=== PATIENT | female | born 1985 | race Caucasian/White ===

== ENCOUNTER 2022-11-21 21:40 | Emergency (ER) | payer MEDICAID, SELFPAY ==
[2022-11-21 21:46] VITALS: BP 127/81; PULSE 84; RESP 18; TEMP 36.9; O2SAT 99; BMI 23.6
--- NOTE | 2022-11-21 21:53 | PC.NURSE ---
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 toe is now swollen and bruised. 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 ice pack applied on arrival
--- NOTE | 2022-11-21 22:10 | XR_ITS ---
[address] [address] Patient Name: CONRAD BRANNON MRN: [id number] date: 1985 Sex: F Assigned Patient Location: ER Current Patient Location: ER Accession/Order Number: [id number] Exam Date: 11/21/2022 22:10 Report Date: 11/21/2022 22:37 At the request of: SINDI MARKER Procedure: XR toe RT min 2V EXAM: XR toe RT min 2V HISTORY: toe pain COMPARISON: None. TECHNIQUE: 3 views of the right great toe are performed. FINDINGS: There is no acute fracture. The bony structures are intact. Joint spaces are maintained. Unremarkable soft tissues. IMPRESSION: No acute bony abnormality. Electronically authenticated by: ASTRID GRAHAM Date: 11/21/2022 22:37
--- NOTE | 2022-11-21 22:32 | ED.LOWEXI1 ---
HPI - Extremity Injury (Lower) General Chief Complaint: Extremity Injury, Lower Stated Complaint: LOWER INJURY Time Seen by Provider: 11/21/22 22:31 Source: patient Mode of arrival: Wheelchair Limitations: no limitations History of Present Illness HPI Narrative: This 37-year-old female presents for evaluation of right toe pain. The patient states she was taking a coffee cup out of her cupboard in her house and dropped it onto her right foot. It struck her right great toe. She had immediate pain. She has some bruising at the proximal phalanx of the great toe. No additional injuries or complaints. Related Data Home Medications Medication Instructions Recorded Confirmed sertraline 100 mg tablet 100 mg PO DAILY 11/21/22 11/21/22 Allergies Allergy/AdvReac Type Severity Reaction Status Date / Time codeine Allergy Severe Anaphylaxis Verified 11/21/22 21:50 PFSH PFSH Social History Smoking status: Current every day smoker Exam Constitutional Vital Signs - 24 hr 11/21/22 21:46 Temperature 98.5 F Pulse Rate [Monitor] 84 Respiratory Rate 18 Blood Pressure [Right Arm] 127/81 H Pulse Oximetry 99 Oxygen Delivery Method Room Air Documenting provider has reviewed patient's vital signs: yes Common normals: no apparent distress and average body habitus Respiratory Common normals: normal respiratory effort, no retractions, no use of accessory muscles and clear to auscultation bilaterally Cardio Common normals: regular rate and regular rhythm Extremity Right lower extremity: foot and digits ( bruising and tenderness to the proximal phalanx of the right great toe) Right foot and digits: inspection (small area of bruising at 1st metatarsal, no subungual hematoma), palpation (Tender at 1st metatarsal), ROM (Normal), neurovascular exam (Normal) and tendon exam (normal) Course Vital Signs Vital signs: Vital Signs Temperature 98.5 F 11/21/22 21:46 Pulse Rate 84 11/21/22 21:46 Respiratory Rate 18 11/21/22 21:46 Blood Pressure 127/81 H 11/21/22 21:46 Pulse Oximetry 99 11/21/22 21:46 Oxygen Delivery Method Room Air 11/21/22 21:46 Temperature 98.5 F 11/21/22 21:46 Pulse Rate 84 11/21/22 21:46 Respiratory Rate 18 11/21/22 21:46 Blood Pressure 127/81 H 11/21/22 21:46 Pulse Oximetry 99 11/21/22 21:46 Oxygen Delivery Method Room Air 11/21/22 21:46 MDM - Extremity Injury (Lower) MDM Narrative Medical decision making narrative: This 37-year-old female presents for evaluation of right great toe pain after dropping a stainless steel cup under a great great toe. She does not have a subungual hematoma but does have some bruising at the proximal phalanx. X-ray is negative for acute fracture. She is medicated emergency department with a Forsan and Zoan. Toe was chhaya taped to the 2nd and 3rd toe of the same foot and she was discharged home with prescription for ibuprofen. Discharge Plan Discharge Chief Complaint: Extremity Injury, Lower Clinical Impression: Contusion of toe Patient Disposition: Home, Self-Care Time of Disposition Decision: 22:46 Condition: Good Prescriptions / Home Meds: No Action sertraline 100 mg tablet 100 mg PO DAILY Stand Alone Forms: Portal Instructions Referrals: Physician,Non-Staff, MD [Primary Care Provider] - 1 week
[2022-11-21 23:10] VITALS: BP 130/66; PULSE 82; O2SAT 100
[2022-11-21] MEDS: ONDANSETRON 4 MG RAPDIS TABLET SL (23:12)
[2022-11-21] MEDS: HYDROCODONE/ACETAMINOPHEN 5-325 MG TABLET 1 TAB PO (23:12)
== END 2022-11-21 23:25 | disposition home or self-care (01) ==
PROVIDERS: Emergency Provider Emergency Medicine
DX: S90.111A Contusion of right great toe without damage to nail, initial encounter (principal); W20.8XXA Other cause of strike by thrown, projected or falling object, initial encounter; Z79.899 Other long term (current) drug therapy; F17.210 Nicotine dependence, cigarettes, uncomplicated
CPT/HCPCS: 73660; 99283

== ENCOUNTER 2022-12-13 11:40 | Emergency (ER) | payer MEDICAID, SELFPAY ==
[2022-12-13 11:56] VITALS: BP 104/73; PULSE 62; RESP 18; TEMP 37; O2SAT 99; BMI 21.9
--- NOTE | 2022-12-13 12:06 | PC.NURSE ---
Pt states she always has back pain. States the last 2 days the pain has been much worse. States unsure why. Has not been able to work much the last 2 days due to this. 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 Pt wears back brace but states this is not helping much.
--- NOTE | 2022-12-13 12:36 | ED.BACK1 ---
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 ,but the pain started a few days after the work No radiation down her legs no numbness tingling or any other complaints Related Data Home Medications Medication Instructions Recorded Confirmed sertraline 100 mg tablet 100 mg PO DAILY 11/21/22 11/21/22 Previous Rx's Medication Instructions Recorded diclofenac sodium 75 mg 75 mg PO BID PRN pain #10 tabs 12/13/22 tablet,delayed release orphenadrine citrate 100 mg 100 mg PO DAILY PRN muscle spasm 12/13/22 tablet,extended release #10 tabs Allergies Allergy/AdvReac Type Severity Reaction Status Date / Time codeine Allergy Severe Anaphylaxis Verified 11/21/22 21:50 Review of Systems ROS Status of ROS 10 or more systems reviewed and unremarkable except as noted in history and below PFSH PFS Social History Smoking status: Current every day smoker Exam Narrative Exam Narrative: Nurses notes and vital signs reviewed and patient is not hypoxic. General: Well-appearing and in no apparent distress. Skin: Warm, dry, no pallor noted. No rash. Head: Normocephalic, atraumatic. Neck: Supple, non-tender. Eye: Pupils are equal, round and EOMI. No scleral icterus. Ears, Nose, Mouth, and Throat: TM are clear, no nasal mucosal hypertrophy. Oral mucosa is moist, no posterior oropharynx erythema, uvula is mid-line Cardiovascular: Regular Rate and Rhythm without murmur, gallop or rub. Respiratory: No accessory muscle use or respiratory distress. Lungs are clear to auscultation, no wheezing, rales or rhonchi Chest Wall: no tenderness Back: No midline thoracic or lumbar vertebral tenderness. No CVA tenderness Musculoskeletal: normal ROM, no calf or popliteal tenderness, no lower extremity edema/swelling GI: Abdomen is soft, non-distended. Normal bowel sounds. No masses appreciated. No tenderness to palpation. No rebound, guarding, or rigidity noted. Neurological: A&O x4. No cranial nerve dysfunction observed. No truncal ataxia. Moves all extremities. Sensation intact. Psychiatric: Cooperative and interactive. Normal mood and affect. back exam : No intervertebral line tenderness and there is lower paraspinal muscle tenderness of the lumbar level Constitutional Vital Signs, click to edit/add: Last Vital Signs Temp 98.6 F 12/13/22 11:56 Pulse 62 12/13/22 11:56 Resp 18 12/13/22 11:56 BP 104/73 12/13/22 11:56 Pulse Ox 99 12/13/22 11:56 O2 Del Method Room Air 12/13/22 11:56 Course Vital Signs Vital signs: Vital Signs Temperature 98.6 F 12/13/22 11:56 Pulse Rate 62 12/13/22 11:56 Respiratory Rate 18 12/13/22 11:56 Blood Pressure 104/73 12/13/22 11:56 Pulse Oximetry 99 12/13/22 11:56 Oxygen Delivery Method Room Air 12/13/22 11:56 Temperature 98.6 F 12/13/22 11:56 Pulse Rate 62 12/13/22 11:56 Respiratory Rate 18 12/13/22 11:56 Blood Pressure 104/73 12/13/22 11:56 Pulse Oximetry 99 12/13/22 11:56 Oxygen Delivery Method Room Air 12/13/22 11:56 MDM - Back Pain/Injury MDM Narrative Medical decision making narrative: Is admitted with back pain with no alarming symptoms right now she'll be treated with the Voltaren as well as the Norflex The patient is to followup with primary care physician in next 2-3 days or to return to the emergency department should any of the signs or symptoms worsen or new symptoms develop. The patient agrees with the following Diagnosis and Treatment plan and the patient will be discharged home. Discharge Plan Discharge Chief Complaint: Back Pain/Injury Clinical Impression: Strain of lumbar region Patient Disposition: Home, Self-Care Time of Disposition Decision: 12:37 Condition: Good Mode of Transportation: Private Vehicle Prescriptions / Home Meds: New diclofenac sodium 75 mg tablet,delayed release (DR/EC) 75 mg PO BID PRN (Reason: pain) Qty: 10 0RF orphenadrine citrate 100 mg tablet extended release 100 mg PO DAILY PRN (Reason: muscle spasm) Qty: 10 0RF No Action sertraline 100 mg tablet 100 mg PO DAILY Instructions: Acute Low Back Pain (ED) Stand Alone Forms: Portal Instructions Referrals: Physician,Non-Staff, MD [Primary Care Provider] - 1 week (please add ortho follow up ) Discharge Date/Time: 12/13/22 12:59
[2022-12-13] MEDS: KETOROLAC TROMETHAMINE 30 MG/ML VIAL IM (12:52)
[2022-12-13] MEDS: ORPHENADRINE 60 MG/ 2 ML VIAL IM (12:52)
== END 2022-12-13 12:59 | disposition home or self-care (01) ==
PROVIDERS: Emergency Provider Emergency Medicine
DX: S39.012A Strain of muscle, fascia and tendon of lower back, initial encounter (principal); X50.9XXA Other and unspecified overexertion or strenuous movements or postures, initial encounter
CPT/HCPCS: 96372; 99284

== ENCOUNTER 2023-03-04 22:04 | Emergency (ER) | payer MEDICAID, SELFPAY ==
[2023-03-04 22:19] VITALS: BP 120/88; PULSE 97; RESP 18; TEMP 36.3; O2SAT 98; BMI 20.4
--- NOTE | 2023-03-05 00:25 | PC.NURSE ---
Pt wants to know why other pt was taken back before her. Explained to pt that pt are brought back based on Acuity which is what their problem is. pt looks at staff and states that she has a rash. pt again told that it was based on acuity of what is wrong.
--- NOTE | 2023-03-05 01:12 | PC.NURSE ---
went to waiting room to get pt and she was not there or outside.
== END 2023-03-05 01:36 | disposition left against medical advice (07) ==
LOC: ER 22:15
PROVIDERS: Emergency Provider Internal Medicine
DX: Z53.21 Procedure and treatment not carried out due to patient leaving prior to being seen by health care provider (principal)
CPT/HCPCS: 99281

== ENCOUNTER 2023-07-24 09:26 | Emergency (ER) | payer MEDICAID, SELFPAY ==
[2023-07-24 09:35] VITALS: BP 115/92; PULSE 85; RESP 18; TEMP 36.7; O2SAT 100; BMI 20.4
--- NOTE | 2023-07-24 09:46 | ED_ITS ---
HPI - Back Pain/Injury General Chief Complaint: Back Pain/Injury Stated Complaint: BACK PAIN Time Seen by Provider: 07/24/23 09:34 Source: patient Mode of arrival: walk-in Limitations: no limitations History of Present Illness HPI Narrative: 38-year-old female presents for lower back pain. About a week ago she was walking and felt a pulling in her midline lower back. She did not fall and it does not radiate. She has a long history of back problems. She is to be in pain management but is not any longer. She states that her pain doctor is in residential. No dysuria or hematuria. It is worse in certain positions and the pain is moderate. Related Data Previous Rx's Medication Instructions Recorded cyclobenzaprine 10 mg tablet 10 mg PO TID PRN muscle spasm #20 07/24/23 tabs ibuprofen 800 mg tablet 800 mg PO Q8H PRN pain #20 tabs 07/24/23 tramadol 50 mg tablet 50 mg PO Q8H PRN pain #20 tabs 07/24/23 Allergies Allergy/AdvReac Type Severity Reaction Status Date / Time codeine Allergy Severe Anaphylaxis Verified 11/21/22 21:50 Review of Systems ROS Narrative A ten point review of systems is negative except as noted above. PFSH PFSH Social History Smoking status: Current every day smoker Exam Narrative Exam Narrative: Nurses note and vital signs reviewed and patient is not hypoxic. General: The patient appears well and in no apparent distress. Patient is re sting comfortably on cart. Skin: Warm, dry, no pallor noted. There is no rash noted. Head: Normocephalic, atraumatic Eye: Normal conjunctiva, no drainage Ears, Nose, Mouth, and Throat: oral mucosa is moist. Nares patent. Cardiovascular: Regular Rate and Rhythm Respiratory: Patient is in no distress, no accessory muscle use, lungs are clear to auscultation, no wheezing, rales or rhonchi Back: No bruise or rash or focal area of tenderness to palpation. GI: Soft and nontender Musculoskeletal: The patient has no evidence of calf tenderness, no pitting edema, symmetrical pulses noted bilaterally Neurological: A&O, normal speech Psychiatric: Cooperative Constitutional Vital Signs, click to edit/add: Last Vital Signs Temp 98.0 F 07/24/23 09:35 Pulse 85 07/24/23 09:35 Resp 18 07/24/23 09:35 BP 115/92 H 07/24/23 09:35 Pulse Ox 100 07/24/23 09:35 Course Vital Signs Vital signs: Vital Signs Temperature 98.0 F 07/24/23 09:35 Pulse Rate 85 07/24/23 09:35 Respiratory Rate 18 07/24/23 09:35 Blood Pressure 115/92 H 07/24/23 09:35 Pulse Oximetry 100 07/24/23 09:35 Temperature 98.0 F 07/24/23 09:35 Pulse Rate 85 07/24/23 09:35 Respiratory Rate 18 07/24/23 09:35 Blood Pressure 115/92 H 07/24/23 09:35 Pulse Oximetry 100 07/24/23 09:35 MDM - Back Pain/Injury MDM Narrative Medical decision making narrative: The patient was given IM Toradol and Norflex and feels much better and is able to be discharged home. Treatment diagnosis and follow-up were discussed with the patient. Differential Diagnosis Differential diagnosis: Likely lumbar radiculopathy and strain of lumbar region Lab Data Attestation: I reviewed the patient's lab results. Discharge Plan Discharge Chief Complaint: Back Pain/Injury Clinical Impression: Strain of lumbar region Patient Disposition: Home, Self-Care Time of Disposition Decision: 10:13 Condition: Good Mode of Transportation: Private Vehicle Prescriptions / Home Meds: New cyclobenzaprine 10 mg tablet 10 mg PO TID PRN (Reason: muscle spasm) Qty: 20 0RF ibuprofen 800 mg tablet 800 mg PO Q8H PRN (Reason: pain) Qty: 20 0RF tramadol 50 mg tablet 50 mg PO Q8H PRN (Reason: pain) Qty: 20 0RF Instructions: Low Back Strain (ED) Stand Alone Forms: Portal Instructions Referrals: Physician,Non-Staff, MD [Primary Care Provider] - 1 week
[2023-07-24] MEDS: ORPHENADRINE 60 MG/ 2 ML VIAL IM (09:55)
[2023-07-24] MEDS: KETOROLAC TROMETHAMINE 60 MG/2 ML VIAL IM (09:55)
== END 2023-07-24 10:23 | disposition home or self-care (01) ==
PROVIDERS: Emergency Provider Emergency Medicine
DX: S39.012A Strain of muscle, fascia and tendon of lower back, initial encounter (principal); X58.XXXA Exposure to other specified factors, initial encounter; F17.200 Nicotine dependence, unspecified, uncomplicated
CPT/HCPCS: 96372; 99284; J1885; J2360